=== PATIENT | male | born 1985 | race Caucasian/White ===

== ENCOUNTER 2020-06-24 15:24 | Emergency (ER) | payer BC ==
[~2020-06-24] VITALS: Ht 180.3 cm; Wt 95.0 kg
[2020-06-24 15:40] VITALS: BP 150/81
== END 2020-06-24 16:18 | disposition home or self-care (01) ==
LOC: ER 15:24
DX: R06.02 Shortness of breath (principal); R10.84 Generalized abdominal pain; R19.7 Diarrhea, unspecified; Z20.828 Contact with and (suspected) exposure to other viral communicable diseases; Z72.89 Other problems related to lifestyle; Z88.6 Allergy status to analgesic agent
CPT/HCPCS: 36415; 99282